=== PATIENT | female | born 1985 | race Two or more races ===

== ENCOUNTER 2017-02-16 00:11 | Emergency (ER) | payer OTHER ==
[~2017-02-16] VITALS: Ht 162.6 cm; Wt 68.0 kg
[2017-02-16] MEDS ORDERED: Haloperidol 5mg/ml Inj ONE (00:16)
[2017-02-16 00:20] VITALS: BP 133/98
[2017-02-16] MEDS ORDERED: Haloperidol 5mg/ml Inj IM ONE (00:30)
[2017-02-16 00:38] VITALS: BP 133/98
[2017-02-16 00:49] LABS: MEAN CORPUSCULAR HEMOGLOBIN 33.8 PG (27.0-31.0); MEAN CORPUSCULAR HGB CONC 34.4 G/DL (32.0-36.0); MEAN CORPUSCULAR VOLUME 98 FL (80-99); MEAN PLATELET VOLUME 7.9 FL (6.5-10.1); PLATELET COUNT 310 K/UL (150-450); RED BLOOD COUNT 3.16 M/UL (4.20-5.40); RED CELL DISTRIBUTION WIDTH 11.6 % (11.6-14.8)
[2017-02-16 01:03] LABS: ACETAMINOPHEN < 10 ug/mL (10-30); ALANINE AMINOTRANSFERASE 14 U/L (3-33); ALBUMIN/GLOBULIN RATIO 1.5 (1.0-2.7); ALCOHOL < 10 mg/dL; ANION GAP 17 (5-15); ASPARTATE AMINO TRANSFERASE 20 U/L (5-40); CALCIUM 9.5 mg/dL (8.6-10.2); CARBON DIOXIDE 23 mEQ/L (20-30); CHLORIDE 100 mEQ/L (98-107); GLOMERULAR FILTRATION RATE > 60 mL/min (>60); HEMOLYSIS 2; POTASSIUM 3.7 mEQ/L (3.4-4.9); SODIUM 140 mEQ/L (135-145)
[2017-02-16 01:20] VITALS: BP 107/80
--- NOTE | 2017-02-16 01:21 | Emergency Room Report ---
History of Present Illness General Chief Complaint: Altered Level of Consciousness Source: Patient, EMS Present Illness HPI This is a 31-year-old female presents with agitation and bizarre behavior. Neighbor car 911 because they're yelling and the window breaking. On arrival, police said that she was very and she came in screaming. Back to call 911. She was given 5 mg of Versed. This seemed to calm her down some. Unable to get much of a history from the patient. On arrival patient was very agitated to keep looking around. She did admit to the nurse that she did some drugs today but refuse to specify what. Not much history can be obtained and the patient. Allergies: Coded Allergies: UNABLE TO ASSESS (Unverified , 02/16/17) Patient History Past Medical History: see triage record, old chart reviewed, unable to obtain Past Surgical History: unable to obtain Pertinent Family History: unable to obtain Social History: Reports: drug use Last Menstrual Period: UKN Now: No - UKN Immunizations: other Reviewed Nursing Documentation: PMH: Agreed, PSxH: Agreed Nursing Documentation-PMH Past Medical History Deferred: Pt Cognitively Impaired Review of Systems Eye: Denies: blurred vision, eye pain ENT: Denies: ear pain, nose congestion, throat swelling Respiratory: Denies: cough, shortness of breath Cardiovascular: Denies: chest pain, palpitations Gastrointestinal: Denies: abdominal pain, diarrhea, nausea, vomiting Musculoskeletal: Denies: back pain, joint pain Skin: Denies: rash Neurological: Denies: headache, numbness Endocrine: Denies: increased thirst, increased urine Hematologic/Lymphatic: Denies: easy bruising All Other Systems: limited - Secondary to her agitation Physical Exam Vital Signs Date Time Temp Pulse Resp B/P Pulse Ox O2 Delivery O2 Flow Rate FiO2 02/16/17 00:13 98.2 140 19 130/90 99 Room Air vitals with tachycardia Sp02 EP Interpretation: reviewed, normal General Appearance: well appearing, no apparent distress, alert, other - agitated Head: normocephalic, atraumatic Eyes: bilateral eye EOMI, bilateral eye PERRL ENT: hearing grossly normal, normal pharynx Neck: full range of motion, supple, no meningismus Respiratory: chest non-tender, lungs clear, normal breath sounds Cardiovascular #1: regular rate, rhythm, no murmur Gastrointestinal: normal bowel sounds, non tender, no mass, no organomegaly, no bruit, non-distended Musculoskeletal: back normal, normal range of motion Neurologic: grossly normal Psychiatric: other - Very agitated. Appear to be paranoid Skin: warm/dry Medical Decision Making Diagnostic Impression: Primary Impression: Psychosis Qualified Codes: F23 - Brief psychotic disorder Additional Impressions: Amphetamine abuse UTI (urinary tract infection) Qualified Codes: N30.00 - Acute cystitis without hematuria Leukocytosis Qualified Codes: D72.829 - Elevated white blood cell count, unspecified Anemia Qualified Codes: D64.9 - Anemia, unspecified Proteinuria Qualified Codes: R80.9 - Proteinuria, unspecified Hyperglycemia ER Course Patient presents with acute psychosis. This probably secondary to drug abuse. There may be some underlying psychiatric disorder. She is calmer now. Initially she had to be restrained and medicated. She's calm and walking without any difficulty now. Admit to using amphetamine. She does have a urinary tract infection. She has a leukocytosis. This may be a stress response. No evidence of sepsis. No evidence of meningitis. I will keep her into the morning. She is not suicidal homicidal. As of this moment in time, there is no criteria for 5150. This patient is a chronic risk of self injury due to poor impulse control, limited coping skills, and judgment intermittently impaired by intoxication. I believe that the available clinical evidence to suggest that these characteristics derived primarily from personality disorder and are likely very stable over time. Hospitalization would likely attenuate risk of self-harm only during penitentiary period, without lasting risk reduction. Serious self-harm , while possible, would likely be inadvertent, and because of impulsivity, and foreseeable. For these reasons, I do not believe hospitalization would provide meaningful reduction in risk of self-harm. Lab Results Impression labs with leukocytosis and hyperglycemia EKG Diagnostic Results Rate: normal, tachycardiac Rhythm: NSR ST Segments: no acute changes Rhythm Strip Diag. Results EP Interpretation: yes Rate: 100 Rhythm: NSR, no PVC's, no ectopy Last Vital Signs Date Time Temp Pulse Resp B/P Pulse Ox O2 Delivery O2 Flow Rate FiO2 02/16/17 00:38 121 18 133/98 100 Room Air 02/16/17 00:13 98.2 Status: improved Disposition: HOME, SELF-CARE Condition: Stable Scripts Cephalexin* (KEFLEX*) 500 Mg Capsule 500 MG ORAL TID, #21 CAP 0 Refills Prov: AMRIK BOYD M.D. 02/16/17 Referrals: NOT CHOSEN IPA/,REFERRING (PCP) Additional Instructions: Abstain from drugs. Followup with mental health and your Dr. within 7 days. Return if symptom worsen. Take your antibiotics. AMRIK BOYD M.D. Feb 16, 2017 01:21
[2017-02-16 01:36] LABS: APPEARANCE,URINE CLOUDY; KETONES,URINE 3+ (NEGATIVE); LEUKOCYTE ESTERASE ,URINE 3+ (NEGATIVE); NITRITE,URINE POSITIVE (NEGATIVE); PH,URINE 6 (4.5-8.0); PROTEIN,URINE 3+ (NEGATIVE); UROBILINOGEN,URINE 1 MG/DL (0.0-1.0)
[2017-02-16] MEDS ORDERED: cefTRIAXone 1 GM in NS 55 ML IVPB ONE (01:45)
[2017-02-16 01:48] VITALS: BP 113/73
[2017-02-16 01:48] LABS: BACTERIA,URINE MANY /HPF; RBC,URINE 60-80 /HPF (0 - 2); SQUAMOUS EPITHELIAL CELL,UR MODERATE /LPF (NONE/OCC); WBC,URINE 40-60 /HPF (0 - 2)
[2017-02-16 01:54] LABS: BAND NEUTROPHILS % (MANUAL) 1 % (0-8); BASOPHILS % (MANUAL) 0 % (0-2); EOSINOPHILS % (MANUAL) 0 % (0-3); LYMPHOCYTES % (MANUAL) 13 % (20-45); NEUTROPHILS % (MANUAL) 84 % (45-75); PLATELET ESTIMATE ADEQUATE; PLATELET MORPHOLOGY NORMAL; TOTAL CELLS COUNTED 100
[2017-02-16 03:22] LABS: MEAN CORPUSCULAR HEMOGLOBIN 33.2 PG (27.0-31.0); MEAN CORPUSCULAR HGB CONC 33.1 G/DL (32.0-36.0); MEAN CORPUSCULAR VOLUME 100 FL (80-99); MEAN PLATELET VOLUME 7.6 FL (6.5-10.1); PLATELET COUNT 289 K/UL (150-450); RED BLOOD COUNT 3.29 M/UL (4.20-5.40); RED CELL DISTRIBUTION WIDTH 11.8 % (11.6-14.8); WHITE BLOOD COUNT 21.6 K/UL (4.8-10.8)
[2017-02-16] MEDS ORDERED: KEFLEX500 MG ORAL (03:53)
[2017-02-16 05:10] VITALS: BP 105/71
[2017-02-16 05:49] VITALS: BP 105/71
== END 2017-02-16 06:05 | disposition home or self-care (01) ==
LOC: EDBD 00:11 → EMR 00:40
DX: F23 Brief psychotic disorder (principal); F15.10 Other stimulant abuse, uncomplicated; N39.0 Urinary tract infection, site not specified; D72.829 Elevated white blood cell count, unspecified
CPT/HCPCS: 36415; 80053; 80300; 81003; 81025; 85007; 85025; 87086; 87181; 93005; 96360; 96361; 96372; 99284; G0480; J0696; J1630; 80329

== ENCOUNTER 2017-05-06 21:37 | Emergency (ER) | payer OTHER ==
[~2017-05-06] VITALS: Ht 170.2 cm; Wt 63.5 kg
[~2017-05-06 21:37] MED LIST: KEFLEX500 MG ORAL
[2017-05-06 21:50] VITALS: BP 125/78
--- NOTE | 2017-05-06 21:56 | Emergency Room Report ---
History of Present Illness General Chief Complaint: Substance Abuse Source: Patient, EMS Present Illness HPI The patient was in a room and [employer] found methamphetamine. She was not speaking or answering appropriately. Paramedics were called. The patient could recall the year. She denies any symptoms. She is unable to answer questions. She was seen in January. She presented similarly, however was much more agitated. She required sedation at that time. Her white count was 22,000 and also she had pyuria. She was treated for UTI. She was able to be discharged from that visit. She denies pain. She says she is not suicidal. She states there is nothing wrong with her. Allergies: Coded Allergies: UNABLE TO ASSESS (Unverified , 02/16/17) Patient History Limited by: medical condition Past Medical History: see triage record, old chart reviewed Social History: Reports: drug use Social History Narrative has sister Reviewed Nursing Documentation: PMH: Agreed, PSxH: Agreed Nursing Documentation-PMH Past Medical History: No History, Except For Review of Systems All Other Systems: limited Physical Exam Vital Signs Date Time Temp Pulse Resp B/P Pulse Ox O2 Delivery O2 Flow Rate FiO2 05/06/17 21:42 98.8 110 18 126/77 98 Room Air Sp02 EP Interpretation: reviewed, normal General Appearance: well appearing, non-toxic, mild distress, other - GCS 14 Head: normocephalic Eyes: bilateral eye PERRL, bilateral eye normal inspection ENT: dry mucus membranes Neck: supple Respiratory: lungs clear, normal breath sounds Cardiovascular #1: tachycardia Cardiovascular #2: 2+ radial (L) Gastrointestinal: normal inspection, non tender, no mass, non-distended, abnormal bowel sounds - decreased, scaphoid Musculoskeletal: back normal, gait/station normal, normal range of motion Neurologic: alert, motor strength/tone normal, DTRs symmetric - hyperreflexic, sensory intact, oriented - X2 Psychiatric: other - pressured, having difficulty forming thoughts Skin: normal inspection, warm/dry Medical Decision Making Diagnostic Impression: Primary Impression: Altered level of consciousness Additional Impressions: Amphetamine abuse Urinary tract infection Qualified Codes: N30.00 - Acute cystitis without hematuria ER Course Patient presents with agitation and difficulty with thoughts with evidence of methamphetamine use. Ddx: methamphetamine psychosis, electrolyte abnormalities , other psychopathy. She is not in a state of agitated delirium, however, she is tachycardic and needs emergent evaluation and observation. EKG, labs ordered. IV hydration and cardiac monitoring. With difficulty, patient directed to receive care. EKG below. Labs significant for slightly, high WBC, low potassium, pyuria, + amphetamines. Improved with hydration. Still not fully appropriate. Sister is here and willing to observe the patient. Patient stable for outpatient observation and treatment. Labs Test 05/06/17 22:13 05/06/17 23:50 White Blood Count 10.5 K/UL (4.8-10.8) Red Blood Count 3.57 M/UL (4.20-5.40) Hemoglobin 12.0 G/DL (12.0-16.0) Hematocrit 34.6 % (37.0-47.0) Mean Corpuscular Volume 97 FL (80-99) Mean Corpuscular Hemoglobin 33.7 PG (27.0-31.0) Mean Corpuscular Hemoglobin Concent 34.8 G/DL (32.0-36.0) Red Cell Distribution Width 11.5 % (11.6-14.8) Platelet Count 290 K/UL (150-450) Mean Platelet Volume 7.2 FL (6.5-10.1) Neutrophils (%) (Auto) 53.8 % (45.0-75.0) Lymphocytes (%) (Auto) 34.3 % (20.0-45.0) Monocytes (%) (Auto) 9.4 % (1.0-10.0) Eosinophils (%) (Auto) 1.5 % (0.0-3.0) Basophils (%) (Auto) 0.9 % (0.0-2.0) Sodium Level 140 mEQ/L (135-145) Potassium Level 3.3 mEQ/L (3.4-4.9) Chloride Level 101 mEQ/L (98-107) Carbon Dioxide Level 23 mEQ/L (20-30) Anion Gap 16 (5-15) Blood Urea Nitrogen 16 mg/dL (7-23) Creatinine 0.8 mg/dL (0.5-0.9) Estimat Glomerular Filtration Rate > 60 mL/min (>60) Glucose Level 88 mg/dL (74-106) Calcium Level 9.3 mg/dL (8.6-10.2) Total Bilirubin 0.8 mg/dL (0.0-1.2) Aspartate Amino Transf (AST/SGOT) 18 U/L (5-40) Alanine Aminotransferase (ALT/SGPT) 14 U/L (3-33) Alkaline Phosphatase 42 U/L (35-104) Total Creatine Kinase 108 U/L (26-140) Total Protein 7.3 g/dL (6.6-8.7) Albumin 4.7 g/dL (3.5-5.2) Globulin 2.6 g/dL Albumin/Globulin Ratio 1.8 (1.0-2.7) Salicylates Level < 1 mg/dL (10-30) Acetaminophen Level < 10 ug/mL (10-30) Serum Alcohol < 10 mg/dL Urine Color Yellow Urine Appearance Cloudy Urine pH 5 (4.5-8.0) Urine Specific [place] 1.025 (1.005-1.035) Urine Protein 2+ (NEGATIVE) Urine Glucose (UA) Negative (NEGATIVE) Urine Ketones 3+ (NEGATIVE) Urine Occult Blood 3+ (NEGATIVE) Urine Nitrite Negative (NEGATIVE) Urine Bilirubin Negative (NEGATIVE) Urine Urobilinogen 1 MG/DL (0.0-1.0) Urine Leukocyte Esterase 2+ (NEGATIVE) Urine RBC 2-4 /HPF (0 - 2) Urine WBC 10-15 /HPF (0 - 2) Urine Squamous Epithelial Cells Many /LPF (NONE/OCC) Urine Bacteria Many /HPF (NONE) Urine HCG, Qualitative Negative Urine Opiates Screen Negative (NEGATIVE) Urine Barbiturates Screen Negative (NEGATIVE) Phencyclidine (PCP) Screen Negative (NEGATIVE) Urine Amphetamines Screen Positive (NEGATIVE) Urine Benzodiazepines Screen Negative (NEGATIVE) Urine Cocaine Screen Negative (NEGATIVE) Urine Marijuana (THC) Screen Negative (NEGATIVE) EKG Diagnostic Results Rate: tachycardiac ST Segments: no acute changes Rhythm Strip Diag. Results EP Interpretation: yes Rhythm: no PVC's, no ectopy, other - ST Last Vital Signs Date Time Temp Pulse Resp B/P Pulse Ox O2 Delivery O2 Flow Rate FiO2 05/07/17 00:30 98.2 96 15 120/76 100 Room Air Status: improved Disposition: HOME, SELF-CARE - with sister Condition: Improved - and stable Scripts Nitrofurantoin Monohyd/M-Cryst* (MACROBID 100 MG*) 100 Mg Capsule 100 MG ORAL EVERY 12 HOURS, #14 CAP Prov: Malcolm Harrell M.D. 05/07/17 Malcolm Harrell M.D. May 06, 2017 21:56
[2017-05-06 22:31] LABS: BASOPHILS % (AUTO) 0.9 % (0.0-2.0); EOSINOPHILS % (AUTO) 1.5 % (0.0-3.0); LYMPHOCYTES % (AUTO) 34.3 % (20.0-45.0); MEAN CORPUSCULAR HEMOGLOBIN 33.7 PG (27.0-31.0); MEAN CORPUSCULAR HGB CONC 34.8 G/DL (32.0-36.0); MEAN CORPUSCULAR VOLUME 97 FL (80-99); MEAN PLATELET VOLUME 7.2 FL (6.5-10.1); MONOCYTES % (AUTO) 9.4 % (1.0-10.0); NEUTROPHILS % (AUTO) 53.8 % (45.0-75.0); PLATELET COUNT 290 K/UL (150-450); RED BLOOD COUNT 3.57 M/UL (4.20-5.40); RED CELL DISTRIBUTION WIDTH 11.5 % (11.6-14.8); WHITE BLOOD COUNT 10.5 K/UL (4.8-10.8)
[2017-05-06 23:06] LABS: ACETAMINOPHEN < 10 ug/mL (10-30); ALANINE AMINOTRANSFERASE 14 U/L (3-33); ALBUMIN/GLOBULIN RATIO 1.8 (1.0-2.7); ALCOHOL < 10 mg/dL; ANION GAP 16 (5-15); ASPARTATE AMINO TRANSFERASE 18 U/L (5-40); CALCIUM 9.3 mg/dL (8.6-10.2); CARBON DIOXIDE 23 mEQ/L (20-30); CHLORIDE 101 mEQ/L (98-107); CREATININE 0.8 mg/dL (0.5-0.9); GLOMERULAR FILTRATION RATE > 60 mL/min (>60); HEMOLYSIS 5; POTASSIUM 3.3 mEQ/L (3.4-4.9); SODIUM 140 mEQ/L (135-145); TOTAL PROTEIN 7.3 g/dL (6.6-8.7)
[2017-05-06 23:10] VITALS: BP 126/76
[2017-05-07 00:06] LABS: KETONES,URINE 3+ (NEGATIVE); LEUKOCYTE ESTERASE ,URINE 2+ (NEGATIVE); NITRITE,URINE NEGATIVE (NEGATIVE); PH,URINE 5 (4.5-8.0); PROTEIN,URINE 2+ (NEGATIVE); UROBILINOGEN,URINE 1 MG/DL (0.0-1.0)
[2017-05-07 00:15] LABS: APPEARANCE,URINE CLOUDY
[2017-05-07 00:18] LABS: BACTERIA,URINE MANY /HPF; SQUAMOUS EPITHELIAL CELL,UR MANY /LPF (NONE/OCC)
[2017-05-07] MEDS ORDERED: NITROFURANTOIN100 M2 ORAL (00:23)
[2017-05-07 00:30] VITALS: BP 120/76
== END 2017-05-07 00:30 | disposition home or self-care (01) ==
LOC: EDBD 21:37 → EMR 22:19
DX: R41.82 Altered mental status, unspecified (principal); F15.10 Other stimulant abuse, uncomplicated; N39.0 Urinary tract infection, site not specified
CPT/HCPCS: 36415; 80053; 80300; 81003; 81025; 82550; 85025; 87086; 93005; 96361; 96374; 99284; G0480; 80329